=== PATIENT | male | born 1950 | race Caucasian/White ===

== ENCOUNTER → 2021-04-06 | Outpatient (REF) | payer MEDICARE ==
[2021-04-06 14:37] LABS: TOTAL PROTEIN 7.3 GM/DL (6.4-8.2)
== END ==
LOC: M LAB REF 13:20
PROVIDERS: ATTEND Internal Medicine Nephrology
DX: N18.31 Chronic kidney disease, stage 3a (principal)

== ENCOUNTER → 2022-04-17 | Outpatient (REF) | payer MEDICARE ==
[2022-04-17 18:28] LABS: PERCENT SATURATION 5.3 % (19.7-50.0)
[2022-04-17 18:30] LABS: FERRITIN 5.5 NG/ML (10.5-307.3)
== END ==
LOC: M LAB REF 17:20
PROVIDERS: ATTEND Internal Medicine Nephrology
DX: N18.9 Chronic kidney disease, unspecified (principal); D63.1 Anemia in chronic kidney disease

== ENCOUNTER 2022-05-11 11:38 | Outpatient (CLI) | payer MEDICARE ==
[~2022-05-11] VITALS: Ht 185.4 cm; Wt 93.0 kg
[~2022-05-11 11:38] MED LIST: ALBUTEROL SULFATE 2.5MG/0.5ML INH NEB SOLN INH PRN; EPINEPHrine INJ 1 MG/ML 1ML AMP IM PRN; diphenhydrAMINE 50MG/ML VIAL IV PRN; methylPREDNISolone 125MG 2ML VIAL IV PRN
[2022-05-11] MEDS ORDERED: NS 1,000 ML IV SCH (12:00)
[2022-05-11] MEDS ORDERED: FERRIC CARBOXYMALTOSE INJ 750 MG in NS 250 ML (>50kg) IV ONE ×3 (12:00)
[2022-05-11 12:18] VITALS: BP 155/95
[2022-05-11 13:16] VITALS: BP 129/71
== END 2022-05-11 13:20 | disposition home or self-care (01) ==
LOC: M INFU 11:38
PROVIDERS: ATTEND Internal Medicine Nephrology
DX: E61.1 Iron deficiency (principal)
CPT/HCPCS: 96365; J1439

== ENCOUNTER 2022-05-22 06:50 | Outpatient (CLI) | payer MEDICARE ==
[~2022-05-22] VITALS: Ht 185.4 cm; Wt 93.4 kg
[2022-05-22 06:50] VITALS: BP 166/88
[~2022-05-22 06:50] MED LIST changes: +FERRIC CARBOXYMALTOSE INJ 750 MG in NS 250 ML (>50kg) IV ONE; +NS 1,000 ML IV SCH
[2022-05-22] MEDS ORDERED: FERRIC CARBOXYMALTOSE INJ 750 MG in NS 250 ML (>50kg) IV ONE ×3 (07:00)
[2022-05-22] MEDS ORDERED: NS 1,000 ML IV SCH (07:00)
[2022-05-22] MEDS ORDERED: methylPREDNISolone 125MG 2ML VIAL IV PRN (07:01)
[2022-05-22] MEDS ORDERED: ALBUTEROL SULFATE 2.5MG/0.5ML INH NEB SOLN INH PRN (07:01)
[2022-05-22] MEDS ORDERED: diphenhydrAMINE 50MG/ML VIAL IV PRN (07:01)
[2022-05-22] MEDS ORDERED: EPINEPHrine INJ 1 MG/ML 1ML AMP IM PRN (07:01)
[2022-05-22 08:07] VITALS: BP 163/86
== END 2022-05-22 08:10 | disposition home or self-care (01) ==
LOC: M INFU 06:50
PROVIDERS: ATTEND Internal Medicine Nephrology
DX: E61.1 Iron deficiency (principal)
CPT/HCPCS: 96365; J1439

== ENCOUNTER 2023-06-19 11:42 | Day surgery (SDC) | payer MEDICARE ==
[~2023-06-19] VITALS: Ht 185.4 cm; Wt 92.4 kg
[~2023-06-19 11:42] MED LIST changes: -ALBUTEROL SULFATE 2.5MG/0.5ML INH NEB SOLN INH PRN; +ATOR1TAB21 PO; +CLOP75TA2 PO; -EPINEPHrine INJ 1 MG/ML 1ML AMP IM PRN; -FERRIC CARBOXYMALTOSE INJ 750 MG in NS 250 ML (>50kg) IV ONE; +GARLIC 1000 MG PO; +HYDR-3490 PO; +LOSA50TA28 PO; +METO1TAB33 PO; +NITR0.4S14 SL; -NS 1,000 ML IV SCH; +OMEG10002 PO; +PANT40TA29 PO; +TRAZ-252 PO; -diphenhydrAMINE 50MG/ML VIAL IV PRN; -methylPREDNISolone 125MG 2ML VIAL IV PRN
[2023-06-19] MEDS: NS 1,000 ML IV ONE (12:05)
[2023-06-19] MEDS ORDERED: GLYCOPYRROLATE INJ 0.2 MG/ML 2 ML VIAL As Ordered ONE (13:06)
[2023-06-19] MEDS ORDERED: LIDOCAINE 2% 100MG/5ML SDV (FOR ANES.) As Ordered ONE (13:06)
[2023-06-19] MEDS ORDERED: propofoL 200 MG/20 ML VIAL As Ordered ONE (13:06)
[2023-06-19 13:25] VITALS: TEMP 96.4
[2023-06-19 13:47] VITALS: BP 142/85; O2SAT 98
== END 2023-06-19 13:57 | disposition home or self-care (01) ==
LOC: M OPP 11:42
PROVIDERS: ATTEND Internal Medicine Gastroenterology
DX: K22.70 Barrett's esophagus without dysplasia (principal); K20.90 Esophagitis, unspecified without bleeding; K22.89 Other specified disease of esophagus; D50.0 Iron deficiency anemia secondary to blood loss (chronic); K31.819 Angiodysplasia of stomach and duodenum without bleeding; I48.91 Unspecified atrial fibrillation; Z95.0 Presence of cardiac pacemaker; Z79.02 Long term (current) use of antithrombotics/antiplatelets; Z79.899 Other long term (current) drug therapy; Z87.891 Personal history of nicotine dependence

== ENCOUNTER 2023-08-13 10:29 | Day surgery (SDC) | payer MEDICARE ==
[~2023-08-13] VITALS: Ht 182.9 cm; Wt 90.7 kg
[~2023-08-13 10:29] MED LIST changes: +GARL1000 PO; +SUCR1TAB56 PO
[2023-08-13] MEDS ORDERED: LIDOCAINE 2% 100MG/5ML SDV (FOR ANES.) As Ordered ONE (12:27)
[2023-08-13] MEDS ORDERED: propofoL 500 MG/50 ML VIAL As Ordered ONE (12:27)
[2023-08-13 12:34] VITALS: TEMP 97.8
[2023-08-13 13:00] VITALS: BP 140/86; O2SAT 100
== END 2023-08-13 13:07 | disposition home or self-care (01) ==
LOC: M OPP 10:29
PROVIDERS: ATTEND Internal Medicine Gastroenterology
DX: K31.819 Angiodysplasia of stomach and duodenum without bleeding (principal); K22.70 Barrett's esophagus without dysplasia; I48.91 Unspecified atrial fibrillation; I25.10 Atherosclerotic heart disease of native coronary artery without angina pectoris; Z95.5 Presence of coronary angioplasty implant and graft; Z79.02 Long term (current) use of antithrombotics/antiplatelets; Z79.899 Other long term (current) drug therapy